=== PATIENT | male | born 1995 | race Caucasian/White ===

== ENCOUNTER 2018-02-26 01:15 | Emergency (ER) | payer SELFPAY ==
[~2018-02-26] VITALS: Ht 167.6 cm; Wt 103.0 kg
[2018-02-26] MEDS ORDERED: IBUPROFEN 600MG TABLET PO ONE (06:30)
[2018-02-26 08:01] VITALS: BP 137/76
== END 2018-02-26 08:05 | disposition home or self-care (01) ==
LOC: ER 01:15
DX: M25.561 Pain in right knee (principal); F12.10 Cannabis abuse, uncomplicated; W01.0XXA Fall on same level from slipping, tripping and stumbling without subsequent striking against object, initial encounter; Y93.01 Activity, walking, marching and hiking; Y92.89 Other specified places as the place of occurrence of the external cause; Y99.8 Other external cause status
CPT/HCPCS: 73562; 99284; L1830; Z7610; 99285